=== PATIENT | female | born 1990 | race Caucasian/White ===

== ENCOUNTER → 2025-03-16 07:53 | Outpatient (REF) | payer OTHER, SELFPAY ==
--- NOTE | 2025-03-16 08:00 | PN.DIAED06 ---
Meal Plan - Gestational
- Breakfast
Gestational Diabetes Meal Plan Name: 2000 calories
Breakfast - Total Carbohydrate (grams): 45 (carbs= starch, fruit, milk/yogurt)
Breakfast - Starch Carbohydrate: 2 (1 carb serving = 15 g)
Breakfast - Fruit Carbohydrate: 0 (no fruit or juice before noon)
Breakfast - Milk Carbohydrate: 1
Breakfast - Nonstarchy Vegetables: Yes
Breakfast - Meat/Protein: 1 (1 protein serving = 1 oz/7g)
Breakfast - Fat: 2 (1 fat serving = 5g)
- Morning Snack
Morning Snack - Total Carbohydrate (grams): 30
Morning Snack - Starch Carbohydrate: 1
Morning Snack - Fruit Carbohydrate: 0 (no fruit or juice before noon)
Morning Snack - Milk Carbohydrate: 1
Morning Snack - Nonstarchy Vegetables: Yes
Morning Snack - Meat/Protein: 0
Morning Snack - Fat: 0
- Lunch
Lunch - Total Carbohydrate (grams): 45
Lunch - Starch Carbohydrate: 1
Lunch - Fruit Carbohydrate: 1
Lunch - Milk Carbohydrate: 1
Lunch - Nonstarchy Vegetables: Yes
Lunch - Meat/Protein: 2
Lunch - Fat: 2
- Afternoon Snack
Afternoon Snack - Total Carbohydrate (grams): 30
Afternoon Snack - Starch Carbohydrate: 1
Afternoon Snack - Fruit Carbohydrate: 1
Afternoon Snack - Milk Carbohydrate: 0
Afternoon Snack - Nonstarchy Vegetables: Yes
Afternoon Snack - Meat/Protein: 1
Afternoon Snack - Fat: 0
- Dinner
Dinner - Total Carbohydrate (grams): 45
Dinner - Starch Carbohydrate: 2
Dinner - Fruit Carbohydrate: 1
Dinner - Milk Carbohydrate: 0
Dinner - Nonstarchy Vegetables: Yes
Dinner - Meat/Protein: 2
Dinner - Fat: 2
- Evening Snack
Evening Snack - Total Carbohydrate (grams): 45
Evening Snack - Starch Carbohydrate: 1
Evening Snack - Fruit Carbohydrate: 1
Evening Snack - Milk Carbohydrate: 1
Evening Snack - Nonstarchy Vegetables: Yes
Evening Snack - Meat/Protein: 1
Evening Snack - Fat: 0
--- NOTE | 2025-03-16 12:29 | PN.DE ---
Diabetes Education
- -
03/16/2025 GESTATIONAL DIABETES CONSULT
Met with patient today for medical nutrition therapy. G2, P1, currently at 26 weeks of gestation, with an JACKSON of 06/17/2025.
Explained glucose metabolism in body and what occurs during to cause increase blood sugar. Discussed importance of keeping BS well controlled to avoid complications to the baby during and after (macrosomia, hypoglycemia).
Discussed macronutrients, provided with 2000 murray GDM meal plan; advised to not skip meals or snacks for proper nutrients for self and baby; to avoid rebound hyperglycemia and overt hypoglycemia. Discussed physical activity and importance in
lowering glucose values, she is not currently exercising but plans to start with the support of her .
She presented to the appointment with a new Accu-Check test strips and lancets, monitor on back order for a day. I demonstrated wtih a different brand monitor, and asked her to outreach if she has difficulty once she receives her monitor.
Reviewed proper testing technique, testing sites and testing pattern. She is aware to test FBS and 2 hr pp each meal. Expected results for FBS <95 mg/dl and 2 hr pp <120 mg/dl. Noted for blood sugar of 77 mg/dl, she has not eaten today. Log sheet
provided for her to record results, she will send a 4-day meal log with all her FBG and 2hr Post prandial glucose numbers to this office for review. In addition, she will send all her glucose readings [facility] every Thursday. She was
encouraged to reach out should she require insulin.
--- NOTE | 2025-03-21 16:03 | PN.DE ---
Diabetes Education
- -
GESTATIONAL DIABETES CONSULT
Kelley emailed her food diary and BS numbers. She is eating waffles, dominguez, scrapple and fried foods throughout the day. She once skipped dinner and a snack.
Her fasting AM blood sugars have been 96, 100, 94, 97. I educated her to cut out waffles, eat more fruits and vegetables and to avoid all fried foods as they elevate glucose for hours.
== END ==
LOC: DES 07:53
PROVIDERS: ATTENDING PHYSICIAN Student in an Organized Health Care Education/Training Program
DX: O24.419 Gestational diabetes mellitus in pregnancy, unspecified control (principal)
CPT/HCPCS: 99078